=== PATIENT | male | born 1985 | race Caucasian/White ===

== ENCOUNTER 2021-05-29 21:46 | Emergency (ER) | payer BC ==
[2021-05-29] MEDS ORDERED: Diphtheria,Pertussis(Acell),Tetanus Vaccine 0.5 ML Syringe IM ONE (21:51)
[2021-05-29] MEDS ORDERED: Lidocaine 1% 30 ML SDV INJECT ONE (21:51)
--- NOTE | 2021-05-29 22:03 | EDM.PDOC ---
ED HPI GENERAL MEDICAL PROBLEM - General Stated Complaint: FISH HOOK IN LEG Time Seen by Provider: 05/29/21 21:50 Source of Information: Reports: Patient History Limitations: Reports: No Limitations - History of Present Illness INITIAL COMMENTS - FREE TEXT/NARRATIVE: This 35 yo male patient reports to the ED with a fishing hook in his right lateral lower leg. The patient reports he was in the hotel room when he got the hook into his leg. The patient reports he attempted to remove the hook himself, but was unable to remove the hook. Onset: Today Duration: Minutes: Quality: Reports: Other Severity: Mild Improves with: Reports: None Worsens with: Reports: None Context: Reports: Activity - Related Data Allergies Allergy/AdvReac Type Severity Reaction Status Date / Time No Known Allergies Allergy Verified 05/29/21 22:02 Home Meds: Home Meds . [No Known Home Meds] 05/29/21 [History] ED ROS GENERAL - Review of Systems Review Of Systems: Comprehensive ROS is negative, except as noted in HPI. ED EXAM, SKIN/RASH Exam: See Below Exam Limited By: No Limitations General Appearance: Alert, WD/WN, No Apparent Distress Eye Exam: Bilateral Eye: PERRL Ears: Hearing Grossly Normal Nose: Normal Inspection Throat/Mouth: Normal Lips, Normal Voice, No Airway Compromise Head: Atraumatic, Normocephalic Neck: Normal Inspection, Full Range of Motion Respiratory/Chest: No Respiratory Distress Cardiovascular: Normal Peripheral Pulses, Regular Rate, Rhythm (Male) Exam: Deferred Rectal (Males) Exam: Deferred Back Exam: Normal Inspection, Full Range of Motion, NT Extremities: Normal Range of Motion, No Pedal Edema, Normal Capillary Refill, Leg Pain (fish hook in right lateral leg) Neurological: Alert, Oriented, CN II-XII Intact, Normal Cognition, Normal Gait, Normal Reflexes, No Motor/Sensory Deficits Psychiatric: Normal Affect, Normal Mood Skin: Warm, Dry, Normal Color, No Rash Location, Skin: Lower Extremity, Right ED SKIN PROCEDURES - Foreign Body Removal Indication:: Fishing hook in right lateral lower leg Consent Obtained:: Patient Performing Doctor:: Cedrick Cifuentes Anesthesia Type: Local Findings:: Fishing hook removed without incident after area had been anesthetized with lidocaine 1% (1 mL administered). Complications:: No Course - Vital Signs Last Recorded V/S: Last Vital Signs Temp 98 F 05/29/21 22:00 Pulse 98 05/29/21 22:00 Resp 16 05/29/21 22:00 BP 132/77 05/29/21 22:00 Pulse Ox 98 05/29/21 22:00 - Orders/Labs/Meds Orders: Active Orders 24 hr Category Date Time Status Vaccines to be Administered [RC] PER UNIT ROUTINE Care 05/29/21 21:51 Ordered Meds: Medications Discontinued Medications Generic Name Dose Route Start Last Admin Trade Name Corin PRN Reason Stop Dose Admin Diphtheria/Tetanus/Acell Pertussis 0.5 ml 05/29/21 21:51 05/29/21 21:57 Diphtheria,Pertussis(Acell),Tetanus Vaccine 0.5 Ml Syringe IM 05/29/21 21:52 0.5 ml .ONCE ONE Administration Lidocaine HCl 30 ml 05/29/21 21:51 05/29/21 21:57 Lidocaine 1% 30 Ml Sdv INJECT 05/29/21 21:52 30 ml ONETIME ONE Administration Departure - Departure Time of Disposition: 22:00 Disposition: Home, Self-Care 01 Condition: Fair Clinical Impression: Foreign body in right lower extremity Qualifiers: Encounter type: initial encounter Qualified Code(s): S80.851A - Superficial foreign body, right lower leg, initial encounter - Discharge Information *PRESCRIPTION DRUG MONITORING PROGRAM REVIEWED*: Not Applicable *COPY OF PRESCRIPTION DRUG MONITORING REPORT IN PATIENT TAYLOR: Not Applicable Forms: ED Department Discharge Care Plan Goals: The patient was advised of the examination results during the visit. The fishing hook was removed without incident. The patient was given a Tetanus injection during the visit. If the patient has any additional symptoms or concerns, the patient should either return to the emergency department or visit his primary care facility. Sepsis Event Note (ED) - Focused Exam Vital Signs: Vital Signs Temp Pulse Resp BP Pulse Ox 05/29/21 22:00 98 F 98 16 132/77 98 - My Orders Last 24 Hours: My Active Orders 05/29/21 21:51 Vaccines to be Administered [RC] PER UNIT ROUTINE - Assessment/Plan Last 24 Hours: My Active Orders 05/29/21 21:51 Vaccines to be Administered [RC] PER UNIT ROUTINE
== END 2021-05-29 22:09 | disposition home or self-care (01) ==
LOC: DL.ED 21:46
DX: S80.851A Superficial foreign body, right lower leg, initial encounter (principal); Z23 Encounter for immunization; W54.8XXA Other contact with dog, initial encounter
CPT/HCPCS: 90471; 90715; 99282